=== PATIENT | male | born 1990 | race African-American/Black ===

== ENCOUNTER 2020-12-31 17:55 | Emergency (ER) | payer MEDICAID ==
[~2020-12-31] VITALS: Ht 167.6 cm; Wt 62.1 kg
[2020-12-31 18:24] VITALS: BP 149/104
[2020-12-31] MEDS ORDERED: KETOROLAC 30 MG/ML VIAL IVP ONE (19:30)
[2020-12-31] MEDS ORDERED: ONDANSETRON 4 MG/2 ML VIAL IVP ONE (19:30)
[2020-12-31] MEDS ORDERED: NACL 0.9% 1,000 ML IV SCH (19:30)
[2020-12-31 19:45] LABS: BASOPHILS % (AUTO) 0.9 % (0.0-2.0); HEMATOCRIT 43.2 % (36-52); HEMOGLOBIN 14.4 g/dL (12.0-18.0); LYMPHOCYTES # (AUTO) 0.8 K/uL (2.0-11.5); LYMPHOCYTES % (AUTO) 21.1 % (20.5-51.1); MEAN CORPUSCULAR HEMOGLOBIN 31 pg (27-31); MEAN CORPUSCULAR HGB CONC 33 g/dL (33-37); MEAN CORPUSCULAR VOLUME 93.2 fL (80-94); MONOCYTES # (AUTO) 0.7 K/uL (0.8-1.0); MONOCYTES % (AUTO) 17.9 % (1.7-9.3); NEUTROPHILS # (AUTO) 2.3 K/uL (1.8-7.7); NEUTROPHILS % (AUTO) 60.1 % (42.2-75.2); PLATELET COUNT (AUTO) 254 K/uL (140-450); RED BLOOD CELL COUNT(AUTO) 4.64 MIL/uL (4.20-6.10); RED CELL DISTRIBUTION WIDTH 15.1 % (11.6-13.7); WHITE BLOOD COUNT (AUTO) 3.9 K/uL (4.8-10.8)
[2020-12-31 19:56] LABS: ALBUMIN 4.7 g/dL (3.4-5.0); ANION GAP 14.6 (8-16); CARBON DIOXIDE 30.6 mmol/L (21-32); CREATININE 0.9 mg/dL (0.6-1.3); POTASSIUM 3.2 mmol/L (3.5-5.1)
[2020-12-31] MEDS ORDERED: POTASSIUM CHLORIDE 10 MEQ TABER PO ONE (20:35)
[2020-12-31] MEDS ORDERED: MORPHINE SULFATE 4 MG/ML SYR IVP ONE (20:55)
[2020-12-31] MEDS ORDERED: BEN50 PO (21:46)
[2020-12-31] MEDS ORDERED: CIPR500T4 PO (21:46)
[2020-12-31] MEDS ORDERED: ACET-8386 PO (21:46)
[2020-12-31] MEDS ORDERED: ONDA8TAB87 PO (21:46)
[2020-12-31] MEDS ORDERED: IBUP-2213 PO (21:46)
[2020-12-31 22:03] VITALS: BP 149/104
== END 2020-12-31 22:03 | disposition home or self-care (01) ==
LOC: MED 17:55
DX: R10.13 Epigastric pain (principal); R11.2 Nausea with vomiting, unspecified; R19.7 Diarrhea, unspecified
CPT/HCPCS: 36415; 74176; 80053; 83690; 85025; 96361; 96374; 96375; 99284; J1885; J2270; J2405; J7030